=== PATIENT | male | born 1985 | race Two or more races ===

== ENCOUNTER 2018-02-14 23:32 | Inpatient (IN) | payer MEDICAID, OTHER ==
--- NOTE | 2018-02-15 00:18 | C.PDOC ---
History Of Present Illness 32 year old male presents to the ED requesting detox for heroin and cocaine abuse. Patient states his last use was yesterday, patient snorts does not use IV. Patient reports he has been vomiting as well but he is tolerating PO while in the ED. Patient denies SI/HI, hallucinations, CP, SOB, injury, fall, trauma. Time Seen by Provider: 02/14/18 23:51 Chief Complaint (Nursing): Substance Abuse History Per: Patient History/Exam Limitations: intoxication Onset/Duration Of Symptoms: Hrs Current Symptoms Are (Timing): Still Present Suicide/Self Injury Attempted (Context): None Modifying Factor(s): Cocaine, Other (Heroin) Associated Symptoms: denies: Depression, Suicidal Thoughts, Suicidal Plan Recent travel outside of the [place]: No Additional History Per: Patient Past Medical History Reviewed: Historical Data, Nursing Documentation, Vital Signs Vital Signs: Last Vital Signs Temp 98 F 02/14/18 23:49 Pulse 78 02/14/18 23:49 Resp 18 02/14/18 23:49 BP 153/80 H 02/14/18 23:49 Pulse Ox 99 02/14/18 23:49 - Medical History PMH: Depression Denies: Diabetes, Hepatitis, HIV, HTN, Seizures, Sexually Transmitted Disease Surgical History: Appendectomy - [facility] Procedures DETOXIFICATION SERVICES FOR SUBSTANCE ABUSE TREATMENT (10/19/15) GROUP FRONTEND ENGINEER FOR SUBSTANCE ABUSE, COGNITIVE BEHAVIORAL (10/19/15) INDIV PSYCHOTHERAPY FOR SUBSTANCE ABUSE TREATMENT, SUPPORT (10/19/15) INDIV PSYCHOTHERAPY FOR SUBSTANCE ABUSE, COGNITIV BEHAVIORAL (10/19/15) Family History: States: Unknown Family Hx - Social History Hx Alcohol Use: No Hx Substance Use: Yes (Heroin) - Immunization History Hx Tetanus Toxoid Vaccination: No Hx Influenza Vaccination: Yes Hx Pneumococcal Vaccination: No Review Of Systems Constitutional: Negative for: Fever, Chills Cardiovascular: Negative for: Chest Pain Respiratory: Negative for: Shortness of Breath Gastrointestinal: Negative for: Nausea, Vomiting, Abdominal Pain Skin: Negative for: Rash Psych: Positive for: Depression, Suicidal ideation Physical Exam - Physical Exam Appears: Non-toxic, No Acute Distress Skin: Normal Color, Warm, Dry Head: Atraumatic, Normacephalic Eye(s): bilateral: Normal Inspection Oral Mucosa: Moist Neck: Normal ROM, Supple Chest: Symmetrical Cardiovascular: Rhythm Regular Respiratory: Normal Breath Sounds, No Rales, No Rhonchi, No Wheezing Gastrointestinal/Abdominal: Soft, No Tenderness, No Guarding, No Rebound Extremity: Normal ROM, No Tenderness, No Swelling Neurological/Psych: Oriented x3, Normal Speech, Normal Cognition Gait: Steady ED Course And Treatment - Laboratory Results Result Diagrams: 02/15/18 00:36 02/15/18 00:36 O2 Sat by Pulse Oximetry: 99 (On RA) Pulse Ox Interpretation: Normal Medical Decision Making Medical Decision Making: Plan: * Labs * UA * Crisis eval Disposition - Disposition Referrals: Non [facility] Provider, [Primary Care Provider] - Disposition Time: 00:00 Condition: STABLE Forms: [email or web address] (Croatian) - Clinical Impression Clinical Impression: Drug dependence, Drug abuse - Scribe Statement The provider has reviewed the documentation as recorded by the Scribe Robert Chaidez All medical record entries made by the Scribe were at my direction and pers onally dictated by me. I have reviewed the chart and agree that the record accurately reflects my personal performance of the history, physical exam, medical decision making, and the department course for this patient. I have also personally directed, reviewed, and agree with the discharge instructions and disposition. Physician Patient Turnover Patient Signed Over To: Uche Schaefer Handoff Comments: pending labs for medical clearance/crisis eval
[2018-02-15 00:40] LABS: BASO # 0.1 K/uL (0.0-0.2); BASO % 0.9 % (0.0-2.0); EOS # 0.8 K/uL (0.0-0.7); EOS % 8.6 % (0.0-4.0); HEMOGLOBIN 14.9 g/dL (12.0-18.0); LYMPH # 2.3 K/uL (1.0-4.3); LYMPH % 26.4 % (20.0-40.0); MEAN CELL VOLUME 89.3 fL (80.0-94.0); MEAN CORPUSCULAR HEMOGLOBIN 30.5 pg (27.0-31.0); MEAN CORPUSCULAR HGB CONC 34.2 g/dL (33.0-37.0); MEAN PLATELET VOLUME 8.6 fL (7.2-11.7); MONO # 0.7 K/uL (0.0-0.8); MONO % 7.5 % (0.0-10.0); NEUT % 56.6 % (50.0-75.0); RBC 4.87 Mil/uL (4.40-5.90); RED CELL DISTRIBUTION WIDTH 13.9 % (11.5-14.5); WHITE BLOOD COUNT 8.9 K/uL (4.8-10.8)
[2018-02-15 00:56] LABS: ALB/GLOB RATIO 1.6 (1.0-2.1); ALBUMIN 4.6 g/dL (3.5-5.0); ALT/SGPT 87 U/L (21-72); AST/SGOT 57 U/L (17-59); BLOOD UREA NITROGEN 13 mg/dL (9-20); CALCIUM 9.1 mg/dl (8.6-10.4); GFR NON-AFRICAN AMERICAN > 60
[2018-02-15 01:34] LABS: URINE BILIRUBIN NEGATIVE (NEGATIVE); URINE BLOOD NEGATIVE (NEGATIVE); URINE CLARITY Clear (Clear); URINE COLOR Yellow (YELLOW); URINE GLUCOSE (UA) NORMAL (Normal); URINE LEUKOCYTE ESTERASE NEG Leu/uL (Negative); URINE PROTEIN NEGATIVE (NEGATIVE)
[2018-02-15 01:48] LABS: BARBITURATES, UR NEGATIVE (NEGATIVE); BENZODIAZEPINES, UR NEGATIVE (NEGATIVE); PHENCYCLIDINE, UR NEGATIVE (NEGATIVE)
[2018-02-15 01:54] LABS: OPIATES, UR POSITIVE (NEGATIVE)
--- NOTE | 2018-02-15 10:54 | PCM.PSYCH ---
Initial Psychiatric Evaluation - Initial Psychiatric Evaluation Type of Admission: Voluntary Legal Status: Capacity Chief Complaint (in patient's own words): I came in to get help." History of Present Illness and Precipitating Events: Patient is a 32 year old male male, who came to the ED to get help pain heroin detox. Patient reports history of one inpatient psychiatric hospitalization more than a year ago. He also reports history of follow-up with a psychiatrist. He has history of few detoxes in the past. As per the patient soon after the last detox from [facility], he relapsed on heroin started abusing 10-20 bags of heroin along with $20-$40 of cocaine daily. Patient reports that yesterday he consumed 2 bundles of heroin intra-nasally and smoked $30 worth of cocaine, started experiencing withdrawal symptoms so he came to the hospital to get help. He reports withdrawal symptoms including nausea, vomiting, cramps, joint pains, sweating and headaches. He reports anxiety but denies any feelings of hopel essness or helplessness. He reports history of bipolar disorder but denies any irritability, agitation or racing thoughts. He denies any auditory hallucinations or any paranoia. He denies any suicidal ideation or any homicidal ideation. Past medical history None reported Past Psychiatric History - Past Psychiatric History Previous Treatment History: Inpatient Pertinent Medical Hx (Current Medical&Sleep Prob, Allergies): Allergies Allergy/AdvReac Type Severity Reaction Status Date / Time cashew nut Allergy Intermediate Verified 02/14/18 23:49 peanut Allergy Intermediate Verified 02/14/18 23:49 Mirtazapine [Remeron] 30 mg PO HS #30 tab 10/24/15 QUEtiapine [SEROquel] 50 mg PO HS #30 tab 10/24/15 Review of Systems - Review of Systems All systems: reviewed and no additional remarkable complaints except - Psychiatric Psychiatric: Anxiety, Irritability. absent: Suicidal Ideation Mental Status Examination - Personal Presentation Personal Presentation: Looks stated age - Affect Affect: Constricted - Motor Activity Motor Activity: Calm - Reliability in Providing Information Reliability in Providing Information: Fair - Speech Speech: Organized - Mood Mood: Anxious - Formal Thought Process Formal Thought Process: No Impairment - Obsessions/Compulsions Obsessions: No Compulsions: No - Cognitive Functions Orientation: Person, Place, Situation, Time Sensorium: Alert Attention/Concentration: Attentive Abstract Thinking: [place] Estimate of Intelligence: Below average Judgement: Imparied, as evidence by: Poor judgement, Imparied, as evidence by: Lack of insight into illness, Intact, as evidence by: Insight regarding need for hospitalization - Risk Risk: Withdrawal, Diminished functioning - Limitations Limitations: Living alone DSM 5 DX - DSM 5 DSM 5 Diagnosis: Opioid use disorder severe Opioid withdrawal Cocaine use disorder severe Sedated/hypnotic use disorder mild Bipolar disorder - Recommended/Plan of Treatment Treatment Recommendations and Plan of Treatment: Opioid use disorder severe Opioid withdrawal Cocaine use disorder severe Sedated/hypnotic use disorder mild Bipolar disorder CBT Psychoeducation Supportive therapy and group therapy Hydroxyzine 25 g p.o. every 6 hours as needed Trazodone 50 mg p.o. nightly Gabapentin 100 mg p.o. 3 times daily Seroquel 50 mg p.o. nightly Methadone taper Detox as needed medications
[2018-02-15] MEDS ORDERED: Aluminum Hydroxide/Magnesium Hydroxide Susp (30 mL) PO PRN (10:55)
--- NOTE | 2018-02-16 08:25 | PCM.BM ---
<Landy Driscoll F - Last Filed: 02/16/18 08:25> Treatment Plan Problems - Problems identified on initial assessmt Potential for opiate withdrawal Assessment reference: NA Treatment assets and liabiliti Patient Assests: adapts well, self-reliant, ADL independent Patient Liabilities: financial problems, relationship conflicts, substance abuse - Milieu Protocol Maintain good personal hygiene: every shift Encourage regular showers, every shift Remind patient to perform daily oral care, every shift Assist patient to perform ADL's Maintain personal safety: every shift Educate patient to report safety concerns to staff, every shift Monitor environment for contraband/sharps Medication safety: Monitor for expected outcome, potential side effects: every shift, Assess barriers to learning: every shift Milieu Narrative: Opioid use disorder severe Opioid withdrawal Cocaine use disorder severe Sedated/hypnotic use disorder mild Bipolar disorder CBT Psychoeducation Supportive therapy and group therapy Hydroxyzine 25 g p.o. every 6 hours as needed Trazodone 50 mg p.o. nightly Gabapentin 100 mg p.o. 3 times daily Seroquel 50 mg p.o. nightly Methadone taper Detox as needed medications Discharge/Continuing Care - Treatment Team Participation Patient/Family/SO Statement: Opioid use disorder severe Opioid withdrawal Cocaine use disorder severe Sedated/hypnotic use disorder mild Bipolar disorder CBT Psychoeducation Supportive therapy and group therapy Hydroxyzine 25 g p.o. every 6 hours as needed Trazodone 50 mg p.o. nightly Gabapentin 100 mg p.o. 3 times daily Seroquel 50 mg p.o. nightly Methadone taper Detox as needed medications <Jovi Argueta M - Last Filed: 02/17/18 17:45> - Diagnosis (1) Opioid use disorder, severe, dependence Status: Acute Interventions: 02/17/18 17:45 * Assess 7x/week regarding severity of withdrawal * Educate regarding risks, benefits, side effects and alternatives of medications * Use Motivational Interviewing for abstinence * Use CBT for relapse prevention * Medication management for withdrawal symptoms * Encourage medication assisted treatment (2) Cocaine use disorder, severe, dependence Status: Acute Interventions: 02/17/18 17:46 * Assess 7x/week regarding severity of withdrawal * Educate regarding risks, benefits, side effects and alternatives of medications * Use Motivational Interviewing for abstinence * Use CBT for relapse prevention * Medication management for withdrawal symptoms * Encourage medication assisted treatment (3) Sedative, hypnotic or anxiolytic use disorder, mild, abuse Status: Acute Interventions: 02/17/18 17:46 * Assess 7x/week regarding severity of withdrawal * Educate regarding risks, benefits, side effects and alternatives of medications * Use Motivational Interviewing for abstinence * Use CBT for relapse prevention * Medication management for withdrawal symptoms * Encourage medication assisted treatment (4) Bipolar 1 disorder Status: Acute Interventions: 02/17/18 17:45 * Assess/adjust medications daily and /or as needed * See patient on an individual basis 7x/week to assess level of manic behaviors and stability * Discuss risks, benefits, side effects and alternatives of medications. <Sandy Yuan - Last Filed: 02/18/18 08:57> Family Contact Family involvement: Sherwin/SO not involved - Goals for Treatment Patient goals for treatment: Complete detox and transition to methadone maintenance. Discharge/Continuing Care - Education Needs Education Needs: Patient Medication, Patient Diagnosis/Disease Process, Patient Coping Skills, Patient Anger Management skills, Patient Placement options, Patient Community resources - Discharge Discharge Criteria: No longer exhibiting s/s of withdrawal, Reduction of target symptoms Discharge to:: Home - Treatment Team Participation Patient/Family/SO Statement: 02/18/18 08:56 "I wanna try the methadone clinic in [place]." Discussed with Family/SO: No Was Patient/Family/SO present at Treatment Team Meeting: Yes
[2018-02-16 14:01] VITALS: RESP 18
--- NOTE | 2018-02-16 21:01 | PCM.PYCHPN ---
Psychiatric Progress Note - Psychiatric Progress Note Patient seen today, length of contact: 15 minutes Patient Chief Complaint: I am tired. Problems Identified/Issues Discussed: Patient seen, chart reviewed, case discussed with the staff. Issues related to illness and treatment were discussed with the patient and staff. Reported noncompliant with treatment. Patient reported feeling tired and refused to come out of the bed to get his methadone. Patient was calm and partially cooperative. Mood reported as anxious. Affect appropriate. Awake, alert and oriented 3. Speech soft with good eye contact. Aftercare discussed with the patient. At the time of evaluation, patient denied any delusions, auditory or visual hallucinations, suicidal ideations or homicidal ideations. Medical Problems: None reported Diagnostic Results: Reviewed Medication Change: No Medical Record Reviewed: Yes Mental Status Examination - Cognitive Function Orientation: Person, Place, Situation, Time Memory: Intact Attention: WNL Concentration: WNL Association: WN Fund of Knowledge: [facility] Decription of patient's judgement and insights: Fair - Mood Mood: Anxious - Affect Affect: Other (Appropriate) - Speech Speech: Appropriate - Formal Thought Process Formal Thought Process: No Impairment Psychotic Thoughts and Behaviors: None - Suicidal Ideation Suicidal Ideation: No - Homicidal Ideation Homicidal Ideation: No Goal/Treatment Plan - Goal/Treatment Plan Need for Continued Stay: Remain at risks for inpatient hospitalization, Discharge may exacerbated symptoms, Severe functional impairment Progress Toward Problem(s) and Goals/Treatment Plan: Patient/staff education. Supportive therapy. CBT for relapse prevention. IA for abstinence. It appears that patient developed only few withdrawal symptoms. We'll start methadone taper for opiate withdrawal symptoms and appropriate. Patient agreed. Estimated Date of D/C: 02/19/18 - Smoking Cessation Smoking Cessation Initiated: No
--- NOTE | 2018-02-17 17:55 | PCM.PYCHPN ---
Psychiatric Progress Note - Psychiatric Progress Note Patient seen today, length of contact: 15 minutes Patient Chief Complaint: I am feeling little better. Problems Identified/Issues Discussed: Patient seen, chart reviewed, case discussed with the staff. Issues related to illness and treatment were discussed with the patient and staff. Reported compliant with treatment with no adverse affects. Tolerating treatment very well. Patient reported still some withdrawal symptoms including tiredness, sweating, cold screen, abdominal cramps. Patient was calm and cooperative. Mood reported as anxious. Affect appropriate. Awake, alert and oriented 3. Speech soft with good eye contact. Aftercare discussed with the patient. At the time of evaluation, patient denied any delusions, auditory or visual hallucinations, suicidal ideations or homicidal ideations. Medical Problems: None reported Diagnostic Results: Reviewed DSM 5 Symptoms Update: Some improvement with treatment. Medication Change: No Medical Record Reviewed: Yes Mental Status Examination - Cognitive Function Orientation: Person, Place, Situation, Time Memory: Intact Attention: WNL Concentration: WNL Association: WN Fund of Knowledge: [facility] Decription of patient's judgement and insights: Fair - Mood Mood: Anxious - Affect Affect: Other (Appropriate) - Speech Speech: Appropriate - Formal Thought Process Formal Thought Process: No Impairment Psychotic Thoughts and Behaviors: None - Suicidal Ideation Suicidal Ideation: No - Homicidal Ideation Homicidal Ideation: No Goal/Treatment Plan - Goal/Treatment Plan Need for Continued Stay: Remain at risks for inpatient hospitalization, Discharge may exacerbated symptoms, Severe functional impairment Progress Toward Problem(s) and Goals/Treatment Plan: Patient/staff education. Supportive therapy. CBT for relapse prevention. SC for abstinence. Continue treatment as before. Estimated Date of D/C: 02/19/18 - Smoking Cessation Smoking Cessation Initiated: No
[2018-02-18 14:34] VITALS: BP 127/65; PULSE 64; TEMP 97.7; O2SAT 99
--- NOTE | 2018-02-18 23:34 | PCM.PYCHDC ---
Mental Status Examination - Mental Status Examination Orientation: Person, Place, Situation, Time Memory: Intact Mood: Neutral Affect: Other (Appropriate) Speech: Appropriate Attention: WNL Concentration: WNL Association: WNL Fund of Knowledge: WNL Formal Thought Process: No Impairment Description of patient's judgement and insight: Poor Psychotic Thoughts and Behaviors: None Suicidal Ideation: No Current Homicidal Ideation?: No Discharge Summary - Discharge Note Reason for Hospitalization: Opioid use disorder severe. Cocaine use disorder severe. Anxiolytic use disorder mild. Bipolar disorder Laboratory Data: Reviewed Consultations:: List each consultation separately and include: 1. Reason for request. 2. Findings. 3. Follow-up Summary of Hospital Course include:: 1. Description of specific treatment plan utilized for patients during their course of treatmen. 2. Summarize the time- course for resolution of acute symptoms and/or regressed behaviors. 3. Describe issues identified and worked on during hospitalization. 4. Describe medication utilized. 5. Describe medical problems identified and treated. 6. Reassessment of suicide risk Summary of Hospital Course: Patient is a 32 year old male male, who came to the ED to get help pain heroin detox. Patient reports history of one inpatient psychiatric hospitalization more than a year ago. He also reports history of follow-up with a psychiatrist. He has history of few detoxes in the past. As per the patient soon after the last detox from [facility], he relapsed on heroin started abusing 10-20 bags of heroin along with $20-$40 of cocaine daily. Patient reports that yesterday he consumed 2 bundles of heroin intra-nasally and smoked $30 worth of cocaine, started experiencing withdrawal symptoms so he came to the hospital to get help. He reports withdrawal symptoms including nausea, vomiting, cramps, joint pains, sweating and headaches. He reports anxiety but denies any feelings of hopelessness or helplessness. He reports history of bipolar disorder but denies any irritability, agitation or racing thoughts. He denies any auditory hallucinations or any paranoia. He denies any suicidal ideation or any homicida l ideation. Past medical history None reported During his stay in the hospital, patient was treated with methadone taper for opioid withdrawal symptoms. He was also started on other PRN medications. Patient was attending groups and other activities on the unit. With above treatment patient started feeling better. Today patient decided to leave the unit without completion of the treatment. Patient was educated and encouraged to complete the treatment, patient refused. Patient was educated that in case of any adverse events including relapse, decompensation, overdose or even of the patient, patient will be responsible for his acts. Patient understood with the above but still refused to stay and left the unit AGAINST MEDICAL ADVICE. - Diagnosis (1) Opioid use disorder, severe, dependence Status: Acute (2) Cocaine use disorder, severe, dependence Status: Acute (3) Sedative, hypnotic or anxiolytic use disorder, mild, abuse Status: Acute (4) Bipolar 1 disorder Status: Acute - Final Diagnosis (DSM 5) Condition upon Discharge: STABLE Disposition: AGAINST MEDICAL ADVICE Follow-up Treatment Plan: Patient will go to methadone maintenance treatment program for follow-up care after discharge from the hospital. - Smoking Cessation Smoking Cessation Medication prescribed: No - Antipsychotic Medications Pt discharged on 2 or more routine antipsychotic medications: No
== END 2018-02-18 15:00 | disposition left against medical advice (07) | DRG 743 ==
LOC: C.ER 23:32 → SUPCPDRO 23:32 → C.7D 02-15 07:52
PROVIDERS: ADMIT Psychiatry & Neurology Psychiatry; ATTEND Psychiatry & Neurology Psychiatry
PROC: HZ2ZZZZ Detoxification Services for Substance Abuse Treatment (ICD-10-PCS; principal; 2018-02-15)
PROC: HZ59ZZZ Individual Psychotherapy for Substance Abuse Treatment, Supportive (ICD-10-PCS; 2018-02-15)
PROC: GZ3ZZZZ Medication Management (ICD-10-PCS; 2018-02-15)
PROC: HZ46ZZZ Group Counseling for Substance Abuse Treatment, Psychoeducation (ICD-10-PCS; 2018-02-15)
DX: F11.23 Opioid dependence with withdrawal (principal); F13.10 Sedative, hypnotic or anxiolytic abuse, uncomplicated; F14.20 Cocaine dependence, uncomplicated; F31.9 Bipolar disorder, unspecified; F41.9 Anxiety disorder, unspecified; Z91.19 Patient's noncompliance with other medical treatment and regimen

== ENCOUNTER 2018-05-11 14:24 | Emergency (ER) | payer OTHER ==
[2018-05-11 14:35] VITALS: BP 134/73; PULSE 105; RESP 17; TEMP 98.3; O2SAT 98
--- NOTE | 2018-05-11 15:17 | C.PDOC ---
History Of Present Illness 32 year old male presents to the emergency department, brought in my EMS, accompanied by police. As per EMS, patient was exhibiting bizarre behavior, running in and out of traffic. At present time, patient is unable to recall the event and denies using drugs today. Patient admits to a history of opioid use in the past, but currently denies active physical complains, suicidal and homicidal ideation. Time Seen by Provider: 05/11/18 14:39 Chief Complaint (Nursing): Psychiatric Evaluation History Per: Patient History/Exam Limitations: no limitations Onset/Duration Of Symptoms: Hrs Current Symptoms Are (Timing): Still Present Suicide/Self Injury Attempted (Context): None Modifying Factor(s): None Associated Symptoms: denies: Suicidal Thoughts, Suicidal Plan Additional History Per: EMS Past Medical History Reviewed: Historical Data, Nursing Documentation, Vital Signs Vital Signs: Last Vital Signs Temp 98.3 F 05/11/18 14:32 Pulse 105 H 05/11/18 14:32 Resp 17 05/11/18 14:32 BP 134/73 05/11/18 14:32 Pulse Ox 98 05/11/18 14:32 - Medical History PMH: Depression Denies: Diabetes, Hepatitis, HIV, HTN, Chronic Kidney Disease, Seizures, Sexually Transmitted Disease Surgical History: Appendectomy - [facility] Procedures DETOXIFICATION SERVICES FOR SUBSTANCE ABUSE TREATMENT (02/15/18) GROUP BODY CARE MANAGER FOR SUBSTANCE ABUSE TREATMENT, PSYCHOEDUCATION (02/15/18) GROUP BODY CARE MANAGER FOR SUBSTANCE ABUSE, COGNITIVE BEHAVIORAL (10/19/15) INDIV PSYCHOTHERAPY FOR SUBSTANCE ABUSE TREATMENT, SUPPORT (02/15/18) INDIV PSYCHOTHERAPY FOR SUBSTANCE ABUSE, COGNITIV BEHAVIORAL (10/19/15) MEDICATION MANAGEMENT (02/15/18) Family History: States: No Known Family Hx - Social History Hx Alcohol Use: No Hx Substance Use: Yes (DENIES) - Immunization History Hx Tetanus Toxoid Vaccination: No Hx Influenza Vaccination: No Hx Pneumococcal Vaccination: No Review Of Systems Except As Marked, All Systems Reviewed And Found Negative. Constitutional: Negative for: Fever, Chills Cardiovascular: Negative for: Chest Pain Respiratory: Negative for: Cough, Shortness of Breath Gastrointestinal: Negative for: Nausea, Vomiting, Abdominal Pain, Diarrhea Neurological: Negative for: Weakness, Numbness Psych: Positive for: Depression. Negative for: Suicidal ideation Physical Exam - Physical Exam Appears: Non-toxic, No Acute Distress Skin: Normal Color, Warm, Dry Head: Atraumatic, Normacephalic Eye(s): bilateral: PERRL Nose: No Deformity, No Tenderness Oral Mucosa: Moist, No Drooling Neck: Normal ROM, Supple Chest: Symmetrical, No Tenderness Cardiovascular: Rhythm Regular, No Murmur Respiratory: No Accessory Muscle Use, No Rales, No Rhonchi, No Stridor, No Wheezing Gastrointestinal/Abdominal: Soft, No Tenderness Extremity: Normal ROM, No Deformity Neurological/Psych: Oriented x3, Normal Speech ED Course And Treatment O2 Sat by Pulse Oximetry: 98 (RA) Pulse Ox Interpretation: Normal Progress Note: FSBS- uncooperative, refused. ODELL Wynn evcassia pt, recommend blood work. As per RN, pt eloped from ED. Disposition - Disposition Disposition: ELOPEMENT - ER ONLY Disposition Time: 18:05 Condition: STABLE Additional Instructions: Follow up with PMD, Psychiatrist in 2-3 minaya for re-evaluation Consider detox return if any new changes. Forms: [employer] (Cuban) - Clinical Impression Clinical Impression: Drug dependence - PA / PAYROLL SUPERVISOR / Resident Statement MD/DO has reviewed & agrees with the documentation as recorded. - Scribe Statement The provider has reviewed the documentation as recorded by the Scribe (Angel Luis Bae) All medical record entries made by the Scribe were at my direction and personally dictated by me. I have reviewed the chart and agree that the record accurately reflects my personal performance of the history, physical exam, medical decision making, and the department course for this patient. I have also personally directed, reviewed, and agree with the discharge instructions and disposition.
== END 2018-05-11 18:03 | disposition left against medical advice (07) ==
LOC: C.ER 14:24
DX: F19.20 Other psychoactive substance dependence, uncomplicated (principal)

== ENCOUNTER → 2018-05-11 18:50 | Emergency (ER) | payer OTHER | END | disposition left against medical advice (07) | LOC: C.ER 18:50 | DX: Z02.89 Encounter for other administrative examinations (principal); Z00.8 Encounter for other general examination ==